=== PATIENT | female | born 1975 | race Caucasian/White ===

== ENCOUNTER 2016-11-03 19:04 | Emergency (ER) | payer OTHER ==
[2016-11-03 19:35] VITALS: BP 118/72
--- NOTE | 2016-11-03 19:37 | ED ---
Throat Pain/Nasal Congestion - HPI Summary HPI Summary: 41 yrold female with runny nose, post nasal drip, sinus pressure and cough. The patient states she has been ill for 10 days. The patient reports that she has been having post nasal drip, and cough with symptoms worse at night when trying to sleep. she has had bilateral ear pain for couple days as well. Denies fever. - History of Current Complaint Chief Complaint: UCRespiratory Time Seen by Provider: 11/03/16 19:27 - Allergies/Home Medications Allergies/Adverse Reactions: Allergies Allergy/AdvReac Type Severity Reaction Status Date / Time No Known Allergies Allergy Verified 11/03/16 19:10 Home Medications: Home Medications Atenolol TAB* [Tenormin TAB* 50 MG] 50 mg PO DAILY 11/03/16 [History Confirmed 11/03/16] Atorvastatin* [Lipitor*] 20 mg PO DAILY 11/03/16 [History Confirmed 11/03/16] Canagliflozin-Metformin HCl [Invokamet 50-500 mg] 1 tab PO BID 11/03/16 [ History Confirmed 11/03/16] Fenofibrate [Lofibra] 160 mg PO DAILY 11/03/16 [History Confirmed 11/03/16] Norgestimate-Ethinyl Estradiol [Ugb-Vp-Usrxob 0.18/0.215/0.25 mg-25 Mcg] 1 tab PO DAILY 11/03/16 [History Confirmed 11/03/16] Triamterene/HCTZ 37.5-25 MG* [Dyazide CAP*] 1 cap PO DAILY 11/03/16 [History Confirmed 11/03/16] Venlafaxine TAB (NF) [Effexor TAB (NF)] 225 mg PO DAILY 11/03/16 [History Confirmed 11/03/16] buPROPion TAB* [Wellbutrin TAB*] 75 mg PO DAILY 11/03/16 [History Confirmed ] glipiZIDE TAB* [Glucotrol TAB*] 5 mg PO BID 11/03/16 [History Confirmed 11/03/16 ] PMH/Surg Hx/FS Hx/Imm Hx Cardiovascular History: Reports: Hx Hypertension - Surgical History Surgery Procedure, Year, and Place: C SECTIONS Infectious Disease History: No Infectious Disease History: Denies: Traveled Outside the [place] in Last 30 Days - Social History Alcohol Use: Rare Substance Use Type: Reports: None Smoking Status (MU): Never Smoked Tobacco Review of Systems Positive: Fatigue. Negative: Fever, Chills Positive: Sore Throat, Ear Ache, Nasal Discharge Positive: Cough All Other Systems Reviewed And Are Negative: Yes Physical Exam Triage Information Reviewed: Yes Vital Signs On Initial Exam: Initial Vitals Temp Pulse Resp BP Pulse Ox 98.8 F 96 18 118/72 99 11/03/16 19:15 11/03/16 19:15 11/03/16 19:15 11/03/16 19:15 11/03/16 19:15 Vital Signs Reviewed: Yes Appearance: Positive: Well-Appearing, No Pain Distress Head/Face: Positive: Normal Head/Face Inspection Eyes: Positive: EOMI ENT: Positive: Pharynx normal, Nasal congestion, TMs normal, Other - bialteral maxillary sinus tenderness Neck: Positive: Supple, Nontender Respiratory/Lung Sounds: Positive: Clear to Auscultation, Breath Sounds Present Cardiovascular: Positive: RRR. Negative: Murmur Musculoskeletal: Positive: Normal, Strength/ROM Intact Neurological: Positive: Normal, Sensory/Motor Intact, Alert, Oriented to Person Place, Time, CN Intact II-III, Normal Gait Psychiatric: Positive: Normal - [place] Coma Scale Best Eye Response: 4 - Spontaneous Best Motor Response: 6 - Obeys Commands Best Verbal Response: 5 - Oriented Diagnostics - Vital Signs Vital Signs Temp Pulse Resp BP Pulse Ox 11/03/16 19:15 98.8 F 96 18 118/72 99 - Laboratory Lab Statement: Any lab studies that have been ordered have been reviewed, and results considered in the medical decision making process. EENT Course/Dx - Course Course Of Treatment: 41 yr old with sinus infection. DC home on Augmenting. FU with PMD - Diagnoses Provider Diagnoses: Sinusitis Discharge - Discharge Plan Condition: Good Disposition: HOME Prescriptions: Amoxicillin/Clavulanate TAB* [Augmentin TAB 875*] 875 mg PO BID #20 tab Patient Education Materials: Sinusitis (ED) Referrals: Vanna Dawkins MD [Primary Care Provider] -
== END 2016-11-03 19:43 | disposition home or self-care (01) ==
LOC: UCCORT 19:04
DX: J32.9 Chronic sinusitis, unspecified (principal); I10 Essential (primary) hypertension
CPT/HCPCS: 99212; G0463

== ENCOUNTER 2018-09-02 19:40 | Emergency (ER) | payer OTHER ==
[2018-09-02 20:07] VITALS: BP 115/60
--- NOTE | 2018-09-02 20:16 | UC ---
Throat Pain/Nasal Paul HPI - HPI Summary HPI Summary: 43-year-old female who has had cold symptoms and now sinus pressure and head congestion over the past 2 weeks. - History of Current Complaint Chief Complaint: UCGeneralIllness Stated Complaint: UPPER RESPIRATORY Time Seen by Provider: 09/02/18 20:08 Hx Obtained From: Patient Hx Last Menstrual Period: 08/22/18 ?: No Onset/Duration: Gradual Onset Severity: Mild Pain Intensity: 6 Cough: None Associated Signs & Symptoms: Positive: Sinus Discomfort, Nasal Discharge - Allergies/Home Medications Allergies/Adverse Reactions: Allergies Allergy/AdvReac Type Severity Reaction Status Date / Time No Known Allergies Allergy Verified 09/02/18 20:07 PMH/Surg Hx/FS Hx/Imm Hx Previously Healthy: Yes Cardiovascular History: Other - High cholesterol Psychological History: Depression - Surgical History Surgical History: Yes Surgery Procedure, Year, and Place: C SECTIONS - Social History Alcohol Use: Rare Substance Use Type: None Smoking Status (MU): Never Smoked Tobacco Review of Systems All Other Systems Reviewed And Are Negative: Yes ENT: Positive: Nasal Discharge, Sinus Congestion, Sinus Pain/Tenderness Is Patient Immunocompromised?: No Physical Exam Triage Information Reviewed: Yes Appearance: Well-Appearing, No Pain Distress, Well-Nourished Vital Signs: Initial Vital Signs Temp 98.0 F 09/02/18 20:02 Pulse 95 09/02/18 20:02 Resp 17 09/02/18 20:02 BP 115/60 09/02/18 20:02 Pulse Ox 100 09/02/18 20:02 Vital Signs Reviewed: Yes Eye Exam: Normal ENT: Positive: Pharynx normal, Nasal congestion, Nasal drainage - Purulent yellow nasal coryza, TMs normal, Sinus tenderness - Bilateral maxillarysinus tenderness on palpation., Uvula midline Neck: Positive: Supple, Nontender, No Lymphadenopathy Respiratory: Positive: Lungs clear, Normal breath sounds, No respiratory distress, No accessory muscle use Cardiovascular: Positive: RRR, No Murmur, Pulses Normal, Brisk Capillary Refill Musculoskeletal Exam: Normal Neurological Exam: Normal Psychological Exam: Normal Skin Exam: Normal Throat Pain/Nasal Course/Dx - Course Course Of Treatment: Patient is in no distress here in the to treat her for sinusitis with amoxicillin 875 mg by mouth twice a day 10 days. - Differential Dx/Diagnosis Provider Diagnosis: Sinusitis Discharge - Sign-Out/Discharge Documenting (check all that apply): Patient Departure All imaging exams completed and their final reports reviewed: No Studies - Discharge Plan Condition: Fair Disposition: HOME Prescriptions: Amoxicillin PO (*) [Amoxicillin 875 MG (*)] 875 mg PO BID 10 Days #20 tab Patient Education Materials: Sinusitis (ED) Referrals: Vanna Dawkins MD [Primary Care Provider] - Additional Instructions: Increase fluids, follow-up with your primary care provider in 4 or 5 days if no improvement. - Billing Disposition and Condition Condition: FAIR Disposition: Home - Attestation Statements Provider Attestation: Per institutional requirements, I have reviewed the chart, however, I was not consulted specifically or made aware of this patient by the midlevel provider. I did not personally evaluate, interact with , or disposition this patient.
== END 2018-09-02 20:20 | disposition home or self-care (01) ==
LOC: UCCORT 19:40
DX: J32.9 Chronic sinusitis, unspecified (principal)
CPT/HCPCS: 36415; 86703; 99212; G0463

== ENCOUNTER 2018-11-22 18:58 | Emergency (ER) | payer OTHER ==
[2018-11-22 19:11] VITALS: BP 121/68
--- NOTE | 2018-11-22 19:22 | UC ---
Back Pain HPI - HPI Summary HPI Summary: day 2 of pain to sides of neck and upper back. denies hx injury. sits and twists all day for work. some relief by being still and looking ahead. worse with twisting upper back and movement of neck. no cp, sob or numb/weakness to arms. took an IB once which helped. - History of Current Complaint Chief Complaint: UCBackPain Stated Complaint: BACK PAIN Time Seen by Provider: 11/22/18 19:12 Hx Obtained From: Patient Hx Last Menstrual Period: 11/14/18 Onset/Duration: Gradual Onset Timing: Constant Pain Intensity: 8 - Allergies/Home Medications Allergies/Adverse Reactions: Allergies Allergy/AdvReac Type Severity Reaction Status Date / Time No Known Allergies Allergy Verified 11/22/18 19:05 Home Medications: Home Medications Fenofibrate [Tricor 160 MG] 160 mg PO DAILY 11/22/18 [History Confirmed 11/22/18 ] PMH/Surg Hx/FS Hx/Imm Hx Endocrine History: Diabetes, Dyslipidemia Cardiovascular History: Hypertension Psychological History: Depression - Surgical History Surgical History: Yes Surgery Procedure, Year, and Place: C SECTIONS - Family History Known Family History: Positive: Non-Contributory - Social History Occupation: Employed Full-time Alcohol Use: Rare Substance Use Type: None Smoking Status (MU): Never Smoked Tobacco Review of Systems All Other Systems Reviewed And Are Negative: No Constitutional: Negative: Fever, Chills Skin: Negative: Rash Respiratory: Negative: Shortness Of Breath, Cough Cardiovascular: Negative: Palpitations, Chest Pain Neurological: Negative: Weakness, Paresthesia, Numbness Physical Exam Triage Information Reviewed: Yes Appearance: Well-Appearing Vital Signs: Initial Vital Signs Temp 96.6 F 11/22/18 19:08 Pulse 87 11/22/18 19:08 Resp 16 11/22/18 19:08 BP 121/68 11/22/18 19:08 Pulse Ox 100 11/22/18 19:08 Vital Signs Reviewed: Yes Eyes: Positive: Conjunctiva Clear ENT: Positive: Normal ENT inspection Neck: Positive: No Lymphadenopathy, Other: - tender to both sides of trapezius. spine non tender. pain reproducible with flexion and extensin of neck. Respiratory: Positive: Lungs clear, Normal breath sounds Cardiovascular: Positive: RRR, No Murmur, Pulses Normal - BUE's Abdomen Description: Positive: Nontender. Negative: Pulsatile Mass Bowel Sounds: Positive: Present Musculoskeletal: Positive: Other: - No rashor deformity. thoracic and lumbar spine are non tender. Flexion of upper back aggravates upper back pain. s/v/m intact x4. Neurological: Positive: Alert Psychological: Positive: Age Appropriate Behavior Skin Exam: Normal Skin: Negative: Rashes Back Pain Course/Dx - Differential Dx/Diagnosis Differential Diagnosis/HQI/PQRI: Other - no concern for infection, AA or cardiopulmonary pathology. hx/pe c/w trapezius muscle pain. Provider Diagnosis: Trapezius strain Discharge - Sign-Out/Discharge Documenting (check all that apply): Patient Departure All imaging exams completed and their final reports reviewed: No Studies - Discharge Plan Condition: Stable Disposition: HOME Prescriptions: Cyclobenzaprine TAB* [Flexeril 10 MG TAB*] 10 mg PO TID PRN #10 tab PRN Reason: Spasms - Muscle Naproxen [Naprosyn 500 mg tab] 500 mg PO BID 5 Days #10 tablet Patient Education Materials: Muscle Spasm (ED) Referrals: Vanna Dawkins MD [Primary Care Provider] - 5 Days - Billing Disposition and Condition Condition: STABLE Disposition: Home
== END 2018-11-22 19:28 | disposition home or self-care (01) ==
LOC: UCCORT 18:58
DX: S29.012A Strain of muscle and tendon of back wall of thorax, initial encounter (principal); X50.1XXA Overexertion from prolonged static or awkward postures, initial encounter; Y93.89 Activity, other specified; Y92.89 Other specified places as the place of occurrence of the external cause; Y99.0 Civilian activity done for income or pay; E11.9 Type 2 diabetes mellitus without complications; I10 Essential (primary) hypertension; E78.5 Hyperlipidemia, unspecified
CPT/HCPCS: 99212; G0463